=== PATIENT | male | born 1950 | race Hispanic/Latino ===

== ENCOUNTER 2019-04-06 10:47 | Emergency (ER) | payer OTHER ==
[2019-04-06] MEDS ORDERED: Morphine 4 MG/ML VIAL ONE (11:35)
[2019-04-06] MEDS ORDERED: Ondansetron PF 4 MG/2 ML Vial ONE (11:36)
[2019-04-06 11:58] LABS: #Eosinphils 0.2 thou/uL (0.0-0.7); #Lymphocytes 3.6 thou/uL (1.20-3.40); #Monocytes 0.5 thou/uL (0.11-0.59); #Neutrophils 12.3 thou/uL (1.40-6.50); %Basophils 0.2 % (0.0-1.0); %Eosinophils 1.2 % (0.0-10.0); %Lymphocytes 21.8 % (21.0-51.0); %Monocytes 2.9 % (0.0-10.0); %Neutrophils 73.9 % (42.0-75.0); Hemoglobin 13.6 g/dL (14.0-18.0); Mean Corpuscular HGB CONC 34.7 g/dL (32.0-36.0); Mean Corpuscular Hemoglobin 28.9 pg (27.0-31.0); Mean Corpuscular Volume 83.2 fL (78.0-98.0); Mean Platelet Volume 8.7 fL (7.4-10.4); Platelet Count 200 thou/uL (130-400); White Blood Cell (WBC) Count 16.6 thou/uL (4.8-10.8)
[2019-04-06] MEDS ORDERED: Midazolam HCl 2 mg/2 ml Vial ONE (12:16)
[2019-04-06 12:23] LABS: ALT (SGPT) 42 U/L (8-55); AST (SGOT) 37 U/L (5-34); Albumin 4.2 g/dL (3.4-4.8); Alkaline Phosphatase 79 U/L (40-110); Anion Gap 14 mmol/L (10-20); BUN (Urea Nitrogen) 12 mg/dL (8.4-25.7); Bilirubin, Total 0.5 mg/dL (0.2-1.2); Calc. Creatinine Clearance 0 mL/min (70-130); Carbon Dioxide 24 mmol/L (23-31); Chloride 102 mmol/L (98-107); Estimated GFR-MDRD Greater than 90; Globulin 3.1 g/dL (2.4-3.5); Glucose 251 mg/dL (80-115); Potassium 4.1 mmol/L (3.5-5.1); Protein, Total 7.3 g/dL (5.8-8.1); Sodium 136 mmol/L (136-145)
--- NOTE | 2019-04-06 13:09 | CT ---
EXAM: Abdomen and pelvic CT scan with contrast: HISTORY: Abdominal pain abdominal hernia COMPARISON: None FINDINGS: The visualized lung bases are clear. Liver: Markedly fatty liver with one cyst measuring 3.3 cm Gallbladder:Unremarkable. Pancreas:Unremarkable Spleen:Unremarkable. Adrenal glands:Unremarkable. Kidneys:No renal calculus or acute obstruction. No solid or cystic renal mass. No large or small bowel obstruction. Large somewhat bilobed anterior abdominal wall periumbilical hernia up to 13 cm transversely. Small fat-containing inguinal hernias. No CT evidence for acute appendicitis. The urinary bladder is unremarkable. Reproductive system:Unremarkable No abscess, adenopathy, or abnormal fluid collection within the abdomen or pelvis. IMPRESSION: Large periumbilical anterior abdominal wall fat-containing hernia. Marked fatty infiltration of the liver. Liver cyst. No evidence for other acute process.
[2019-04-06] MEDS ORDERED: Iopamidol-370 76% 500 ML 1 ML ONE (13:43)
[2019-04-06 14:21] LABS: Lactic Acid 1.7 mmol/L (0.5-2.2)
--- NOTE | 2019-04-06 20:06 | CON ---
DATE OF CONSULTATION: 04/06/2019 REASON FOR CONSULTATION: Ventral hernia. CHIEF COMPLAINT: "My hernia hurts." HISTORY OF PRESENT ILLNESS: The patient is a 68-year-old gentleman, who was brought to the emergency room from incarceration. He states that he has been having some upper midline tenderness around his incisional hernia. He states the hernia was diagnosed over a year or so ago. Pain is localized, does not radiate. He has not had any vomiting, but did have 1 episode of nausea earlier today. The patient underwent attempt at reduction. He was then taken to the CT scan. This demonstrated fat within the abdominal wall. PAST MEDICAL HISTORY: Significant for; 1. Diabetes type 2. 2. Hypothyroidism. 3. Dyslipidemia. 4. Hypertension. 5. Pituitary tumor. PAST SURGICAL HISTORY: None. SOCIAL HISTORY: He does not use any tobacco or alcohol. FAMILY HISTORY: No family history of coronary artery disease. ALLERGIES: NO KNOWN ALLERGIES. MEDICATIONS: 1. Atorvastatin 40 mg at bedtime. 2. Lasix 20 mg twice a day. 3. Glipizide 5 mg twice a day. 4. Lisinopril 10 mg every day. 5. Omeprazole 20 mg every day. 6. Metformin 1000 mg twice a day. REVIEW OF SYSTEMS: Negative for 10 systems, two-point per system other than HPI. PHYSICAL EXAMINATION: VITAL SIGNS: Temperature in the emergency room 98.2. The patient is hypertensive with blood pressures ranging 180-200/100-120, pulse rate is 80. GENERAL: Overweight gentleman, who does not appear to be in any significant distress. HEENT: Head is normocephalic, atraumatic. NECK: Supple. Midline trachea. HEART: regular/regular. LUNGS: Grossly clear to auscultation bilaterally. ABDOMEN: Soft with normoactive bowel sounds. There is a hernia superior to the umbilicus. This is reducible. While the area is tender, there were no skin changes. EXTREMITIES: Full range of motion. SKIN: Good turgor. No jaundice. PSYCHIATRIC: Good insight, good judgment. LABORATORY AND DIAGNOSTIC DATA: CT scan, I independently reviewed the images, I also read the radiologist's interpretation. There is fat within the subcutaneous skin. There is no bowel wall edema or changes consistent with recent obstruction. There is no real inflammatory change noted. The fat within the hernia appears to be omentum, and there is no stranding noted. White blood cell count of 16 with no increase in neutrophils. ASSESSMENT: 1. Pituitary tumor - this was diagnosed in September of last year. The patient has also presented to [facility] with complaints of a headache in February. Neurosurgery has been contacted on both occasions. I do not see, or I cannot find, where the patient has had followup with Neurosurgery. 2. Hypertension. The patient is a known hypertensive patient. Blood pressures are elevated today. This is something that would need to be addressed prior to surgery. 3. History of diabetes. The patient's glucose this morning was 251. Diabetes would increase his risk for perioperative complications. 4. Hernia - this was reducible. On CT scan, it only contained fat. The white blood cell count is most likely stress related. No evidence of bowel involvement or evidence of obstruction. I would prefer to fix this electively once his other medical problems have been addressed. He is not in an emergent circumstance at this juncture. Proceeding to the operating room now is ill-advised, given his other comorbidities. PLAN: Lifting precautions. He may follow up with me in clinic. He also needs to follow up with Neurosurgery to have his pituitary macroadenoma addressed. Furthermore, he needs more aggressive control of his hypertension. Once these have been addressed, we can entertain elective surgery. Job ID: [id number] [id number]
== END 2019-04-06 14:40 ==
LOC: ERS 10:47
DX: K43.9 Ventral hernia without obstruction or gangrene (principal); E03.9 Hypothyroidism, unspecified; E11.9 Type 2 diabetes mellitus without complications; E78.5 Hyperlipidemia, unspecified; I10 Essential (primary) hypertension; Z87.891 Personal history of nicotine dependence
CPT/HCPCS: 36415; 74177; 80053; 83605; 85025; 96361; 96374; 96375; J2250; J2270; J2405; Q9967

== ENCOUNTER 2019-08-23 11:38 | Emergency (ER) | payer OTHER ==
[2019-08-23 12:40] LABS: #Eosinphils 0.3 thou/uL (0.0-0.7); #Lymphocytes 3.5 thou/uL (1.20-3.40); #Monocytes 0.6 thou/uL (0.11-0.59); #Neutrophils 6.6 thou/uL (1.40-6.50); %Basophils 0.4 % (0.0-1.0); %Eosinophils 2.5 % (0.0-10.0); %Monocytes 5.1 % (0.0-10.0); %Neutrophils 59.9 % (42.0-75.0); Hemoglobin 13.4 g/dL (14.0-18.0); Mean Corpuscular HGB CONC 33.2 g/dL (32.0-36.0); Mean Corpuscular Hemoglobin 27.6 pg (27.0-31.0); Mean Corpuscular Volume 83.3 fL (78.0-98.0); Mean Platelet Volume 8.7 fL (7.4-10.4); Platelet Count 202 thou/uL (130-400); RBC Distribution Width 12.2 % (11.5-14.5); Red Blood Cell (RBC) Count 4.85 mill/uL (4.70-6.10)
[2019-08-23 13:04] LABS: ALT (SGPT) 46 U/L (8-55); AST (SGOT) 53 U/L (5-34); Albumin 3.9 g/dL (3.4-4.8); Alkaline Phosphatase 68 U/L (40-110); Anion Gap 16 mmol/L (10-20); BUN (Urea Nitrogen) 14 mg/dL (8.4-25.7); Bilirubin, Total 0.4 mg/dL (0.2-1.2); CK (CPK) 171 U/L (30-200); Calc. Creatinine Clearance 0 mL/min (70-130); Carbon Dioxide 20 mmol/L (23-31); Chloride 103 mmol/L (98-107); Estimated GFR-MDRD Greater than 90; Glucose 127 mg/dL (80-115); Lipase 14 U/L (8-78); Potassium 4.7 mmol/L (3.5-5.1); Protein, Total 7.9 g/dL (5.8-8.1); Sodium 134 mmol/L (136-145)
--- NOTE | 2019-08-23 14:21 | CT ---
EXAM: ABDOMEN AND PELVIC CT SCAN WITH IV CONTRAST: 08/23/19 HISTORY: Pain. Prior surgery for anterior abdominal wall hernia. COMPARISON: 04/26/19. FINDINGS: There is a small patch of pleural based parenchymal density in the right lower lobe which was not pre sent on the prior study probably representing a small focus of pneumonia or pneumonitis with possible mild subsegmental atelectasis as well. There is a prominent sized very fatty liver. Several stable c ysts within the liver. The gallbladder is unremarkable without gallstones or wall thickening or peric holecystic abnormal fat stranding. The pancreas, spleen, adrenal glands, are unremarkable. Small hiat al hernia. There is some abnormal soft tissue density near the midline at the level of the umbilicus which is markedly improved in appearance when compared to the 04/26/19 study at which time there were several air and fluid levels within the subcutaneous tissue up to 5 cm in size which appear to be pos toperative. There was also some anterior abdominal mesenteric fat stranding which is no longer presen t. Bilateral fat containing inguinal hernias. No CT evidence for acute appendicitis. No large or smal l bowel obstruction. No renal calculus or acute obstruction. IMPRESSION: No significant acute process in the abdomen or pelvis. Marked improvement in the postoperative air an d fluid collections in the anterior subcutaneous fat around the level of the umbilicus. Marked fatty changes in the liver with some stable liver cysts. Small hiatal hernia. There is a small patch of pleural based parenchymal change in the right lower lobe which was not pres ent on the prior study and certainly this could represent a small focus of right lower lobe pneumonia with some possible associated minimal atelectasis. POS: RRE
[2019-08-23] MEDS ORDERED: Iopamidol-370 76% 500 ML 1 ML ONE (14:55)
== END 2019-08-23 15:07 | disposition home or self-care (01) ==
LOC: ERS 11:38
DX: J18.9 Pneumonia, unspecified organism (principal); R10.9 Unspecified abdominal pain; R11.2 Nausea with vomiting, unspecified; E11.9 Type 2 diabetes mellitus without complications; E03.9 Hypothyroidism, unspecified; E78.5 Hyperlipidemia, unspecified; Z87.891 Personal history of nicotine dependence; Z79.899 Other long term (current) drug therapy
CPT/HCPCS: 74177; 80053; 82550; 83605; 83690; 84484; 85025; 93005; 96360; Q9967